=== PATIENT | male | born 1960 | race Caucasian/White ===

== ENCOUNTER 2020-08-24 23:26 | Emergency (ER) | payer OTHER ==
[~2020-08-24] VITALS: Ht 188 cm; Wt 235.9 kg
[~2020-08-24 23:26] MED LIST: ATEN25TA PO; LISI2.5T2 PO; WARF1TAB PO
--- NOTE | 2020-08-24 23:43 | NUR ---
PT AAOX4. BIBSELF C/O RUQ ABD PAIN X 2 HRS. PT PLACED IN BED 11 ON MONITOR AND PULSE OX. VSS. MD AT BEDSIDE FOR EVAL AWAITING ORDERS.
[2020-08-25] MEDS ORDERED: HYDROMORPHONE 1 MG/1 ML DISP.SYRIN ONE (00:19)
[2020-08-25] MEDS ORDERED: ONDANSETRON HCL/PF 4 MG/2 ML VIAL ONE (00:19)
[2020-08-25 00:26] LABS: BASOPHILS # (AUTO) 0.2 /CMM (0.0-0.2); BASOPHILS % (AUTO) 3.9 % (0.0-2.0); EOSINOPHILS % (AUTO) 0.4 % (0.0-6.0); HEMATOCRIT 37 % (39-51); HEMOGLOBIN 11.5 g/dL (13.5-17.5); LYMPHOCYTES # (AUTO) 0.6 /CMM (0.8-4.8); LYMPHOCYTES % (AUTO) 11.7 % (20.0-44.0); MEAN CORPUSCULAR HGB CONC 32 g/dl (31.0-36.0); MEAN CORPUSCULAR VOLUME 88 fL (80-96); MONOCYTES # (AUTO) 0.3 /CMM (0.1-1.30); MONOCYTES % (AUTO) 5.8 % (2.0-12.0); NEUTROPHILS # (AUTO) 4.3 /CMM (1.8-8.9); NEUTROPHILS % (AUTO) 78.2 % (43.0-81.0); PLATELET COUNT (AUTO) 135 /CMM (150-450); RED BLOOD CELL COUNT(AUTO) 4.14 MIL/uL (4.5-6.0); WHITE BLOOD COUNT (AUTO) 5.5 K/uL (4.3-11.0)
[2020-08-25] MEDS ORDERED: ONDANSETRON HCL/PF 4 MG/2 ML VIAL IVP ONE (00:30)
[2020-08-25] MEDS ORDERED: HYDROMORPHONE INJ 2 MG/ML DISP.SYRIN IV ONE (00:30)
[2020-08-25] MEDS ORDERED: IV NS 0.9% 500 ML BAG IV ONE (00:30)
[2020-08-25 00:43] LABS: ALANINE AMINOTRANSFERASE 25 U/L (12-78); ALKALINE PHOSPHATASE 88 U/L (46-116); ASPARTATE AMINOTRANSFERASE 20 U/L (15-37); BILIRUBIN,DIRECT 0.1 mg/dL (0.0-0.2); BILIRUBIN,TOTAL 0.3 mg/dL (0.2-1.0); CALCIUM, SERUM 8.7 mg/dL (8.5-10.1); CARBON DIOXIDE 25 mmol/L (21-32); CHLORIDE 106 mmol/L (98-107); CREATININE 1.1 mg/dL (0.6-1.3); GLUCOSE 109 mg/dL (74-106); LIPASE 179 U/L (73-393); POTASSIUM 3.9 mmol/L (3.5-5.1); SODIUM SERUM 142 mmol/L (136-145); TOTAL PROTEIN, SERUM 8.1 g/dL (6.4-8.2); UREA NITROGEN, BLOOD 12 mg/dL (7-18)
--- NOTE | 2020-08-25 00:49 | NUR ---
PT RESTING COMFORTABLY. VSS. DENIES PAIN.
--- NOTE | 2020-08-25 01:34 | NUR ---
PT ASLEEP, VSS.
--- NOTE | 2020-08-25 02:19 | NUR ---
PT RESTING IN BED, VSS.
--- NOTE | 2020-08-25 04:01 | NUR ---
JF CALLED NO BLS TRANSPORT AVAILABLE UNTIL AFTERNOON.
--- NOTE | 2020-08-25 04:06 | NUR ---
ANT CALLED NO BLS TRANSPORT AVAILABLE UNTIL AFTERNOON.
--- NOTE | 2020-08-25 04:13 | NUR ---
PT PROVIDED WITH BLANKET. DENIES PAIN.
--- NOTE | 2020-08-25 05:46 | NUR ---
PT IN BED COMFORTABLY. VSS.
--- NOTE | 2020-08-25 07:06 | NUR ---
SPOKE TO PT, STATED HE DOES NOT HAVE A WAY OF GETTING HOME. VSS. AWARE OF BEING DISCHARGED.
--- NOTE | 2020-08-25 08:24 | NUR ---
RAFAEL HOUGH CALLED FOR ASSISTANCE WITH TX/DC
--- NOTE | 2020-08-25 09:38 | NUR ---
IV removed. Catheter intact and site benign. Pressure and 4x4 applied to site. No bleeding noted.Patient discharged to home in stable condition. Written and verbal after care instructions given. Patient verbalizes understanding of instruction. Assisted to waiting room via wheelchair. Will set a cab for the patient.
--- NOTE | 2020-08-25 11:17 | NUR ---
8:45am Online Content Coordinator consult requested by ED paint tinter Gener to assist in discharge planning/transportation regarding this patient. Patient reported to this SW that in the past he has been set up with a taxi to be transported. Patient requested taxi transportation to this SW. SW will relay message to ED paint tinter Gener and MERRILL Macedo to set up a taxi for this patient. SW remains available for all needs regarding this patient.
--- NOTE | 2020-08-25 11:19 | NUR ---
8:50am SW and ED MERRILL Macedo met with the patient at bedside. ED MERRILL Macedo confirmed with the patient regarding transportation via taxi. Patient remained in agreement and ED MERRILL Macedo will set up taxi for a safe and proper discharge. EMI remains available for all needs regarding this patient.
[2020-08-25 11:44] VITALS: BP 109/69
== END 2020-08-25 09:38 | disposition home or self-care (01) ==
LOC: ER 23:30
DX: K80.20 Calculus of gallbladder without cholecystitis without obstruction (principal); Z20.828 Contact with and (suspected) exposure to other viral communicable diseases; Z86.73 Personal history of transient ischemic attack (TIA), and cerebral infarction without residual deficits; J44.9 Chronic obstructive pulmonary disease, unspecified; I25.2 Old myocardial infarction; I10 Essential (primary) hypertension; Z79.01 Long term (current) use of anticoagulants; Z79.899 Other long term (current) drug therapy; E11.9 Type 2 diabetes mellitus without complications
CPT/HCPCS: 36415; 71045; 80048; 80076; 83690; 84484; 85025; 87426; 93005; 96361; 96374; 96375; 99285; C9803; J1170; J2405; J7030

== ENCOUNTER 2021-02-07 03:10 | Inpatient (IN) | payer OTHER ==
[~2021-02-07] VITALS: Ht 200.7 cm; Wt 227.2 kg
[2021-02-07] MEDS ORDERED: ASPIRIN 81 MG TAB.CHEW ONE (03:26)
[2021-02-07] MEDS ORDERED: NITROGLYCERIN PACKET 1 GM PACKET ONE (03:26)
[2021-02-07] MEDS ORDERED: ASPIRIN 81 MG TAB.CHEW PO ONE (03:30)
[2021-02-07] MEDS ORDERED: NITROGLYCERIN PACKET 1 GM PACKET TD ONE (03:30)
--- NOTE | 2021-02-07 03:31 | NUR ---
PT AAOX4. BIBRA FROM C/O FEELING DIZZINESS, CP AND L ARM NUMBNESS. PLACED IN BED 9 ON POOL TABLE OPERATOR AND PULSE OX. VITALS STABLE. SAT 99%. PLACED ON 2L NC.
[2021-02-07 03:45] LABS: BASOPHILS % (AUTO) 0.4 % (0.0-2.0); EOSINOPHILS % (AUTO) 0.5 % (0.0-6.0); HEMATOCRIT 35 % (39-51); HEMOGLOBIN 10.9 g/dL (13.5-17.5); LYMPHOCYTES # (AUTO) 1.1 /CMM (0.8-4.8); LYMPHOCYTES % (AUTO) 9.1 % (20.0-44.0); MEAN CORPUSCULAR HGB CONC 31 g/dl (31.0-36.0); MEAN CORPUSCULAR VOLUME 87 fL (80-96); MONOCYTES # (AUTO) 1.2 /CMM (0.1-1.30); MONOCYTES % (AUTO) 10.1 % (2.0-12.0); NEUTROPHILS # (AUTO) 9.3 /CMM (1.8-8.9); NEUTROPHILS % (AUTO) 79.9 % (43.0-81.0); PLATELET COUNT (AUTO) 217 /CMM (150-450); RED BLOOD CELL COUNT(AUTO) 4.02 MIL/uL (4.5-6.0); WHITE BLOOD COUNT (AUTO) 11.7 K/uL (4.3-11.0)
--- NOTE | 2021-02-07 03:45 | NUR ---
RADIOLOGY AT BEDSIDE
[2021-02-07 03:59] LABS: CALCIUM, SERUM 8.6 mg/dL (8.5-10.1); CARBON DIOXIDE 24 mmol/L (21-32); CHLORIDE 106 mmol/L (98-107); CREATININE 1.1 mg/dL (0.6-1.3); GLUCOSE 101 mg/dL (74-106); POTASSIUM 3.6 mmol/L (3.5-5.1); SODIUM SERUM 140 mmol/L (136-145); UREA NITROGEN, BLOOD 13 mg/dL (7-18)
[2021-02-07 04:03] LABS: D-DIMER 0.19 mg/L(FEU (0.17-0.50)
[2021-02-07 04:13] LABS: ALANINE AMINOTRANSFERASE 14 U/L (12-78); ALKALINE PHOSPHATASE 90 U/L (46-116); ASPARTATE AMINOTRANSFERASE 11 U/L (15-37); BILIRUBIN,DIRECT 0.2 mg/dL (0.0-0.2); BILIRUBIN,TOTAL 0.8 mg/dL (0.2-1.0); NT-PRO BNP 32 pg/mL (0-125); TOTAL PROTEIN, SERUM 7.9 g/dL (6.4-8.2)
--- NOTE | 2021-02-07 04:17 | NUR ---
LENYID SWABBED, SENT TO LAB.
--- NOTE | 2021-02-07 04:40 | NUR ---
DR LOGAN ON THE PHONE WITH EBONI MENDEZ NP
--- NOTE | 2021-02-07 04:42 | NUR ---
ER SPEAKING TO EBONI GUALLPA. PT READY FOR ADMISSION
--- NOTE | 2021-02-07 04:43 | NUR ---
CALLED [facility] FOR TELE BED
[2021-02-07] MEDS ORDERED: Z GUARD REMEDY 2 OZ OINT TP PRN (05:00)
[2021-02-07] MEDS ORDERED: HYDROCODONE/APAP 5/325MG TABLET PO PRN (05:00)
[2021-02-07] MEDS ORDERED: TEMAZEPAM 15 MG CAPSULE PO PRN (05:00)
[2021-02-07] MEDS ORDERED: MORPHINE SULFATE INJ 2 MG/ML DISP.SYRIN IV PRN (05:00)
[2021-02-07] MEDS ORDERED: MAG HYDROX/AL HYDROX/SIMETH 30 ML UDC PO PRN (05:00)
[2021-02-07] MEDS ORDERED: MAGNESIUM HYDROXIDE 30 ML UDC PO PRN (05:00)
[2021-02-07] MEDS ORDERED: ONDANSETRON HCL/PF 4 MG/2 ML VIAL IVP PRN (05:00)
[2021-02-07] MEDS ORDERED: ACETAMINOPHEN 325 MG TABLET PO PRN (05:00)
--- NOTE | 2021-02-07 05:29 | NUR ---
TELE BED: 306-5
--- NOTE | 2021-02-07 06:22 | NUR ---
REPORT GIVEN TO ROSANGELA MOMIN FOR LORNA. PT TRANSFERED.
[2021-02-07] MEDS ORDERED: WARF-58 PO (07:57)
[2021-02-07] MEDS ORDERED: ATOR40TA PO (07:57)
[2021-02-07] MEDS ORDERED: FURO20TA4 PO (07:57)
[2021-02-07] MEDS ORDERED: WARF10TA45 PO (07:57)
[2021-02-07] MEDS ORDERED: LISI40TA13 PO (07:57)
[2021-02-07] MEDS ORDERED: ACET325T53 PO (07:57)
[2021-02-07] MEDS ORDERED: AMLO-213 PO (07:57)
--- NOTE | 2021-02-07 08:00 | NUR ---
RN OPENING NOTE PT CURRENTLY IN BED RESTING. A/O X3 AND [place] SPEAKING. NO COMPLAINT OF PAIN OR NAUSEA. CURRENTLY ON RA WITH NO SOB OR RESPIRATORY DISTRESS PRESENT. SELF AMBULATORY WITH BATHROOM PRIVILEGES. BED ALARM ON. NO EDEMA PRESENT. IV PRESENT ON R AC 20G AND FLUSHES WELL. SKIN PROBLEMS PRESENT ON B LE AND PICTURES PLACED CHART. SAFETY MEASURES IN PLACE. SIDE RAILS RAISED. BED LOWERED. CALL LIGHT WITHIN REACH. WILL CONTINUE TO MONITOR.
[2021-02-07] MEDS: PANTOPRAZOLE 40 MG TABLET.DR PO SCH (08:09)
[2021-02-07] MEDS: FUROSEMIDE 20 MG TABLET PO SCH (08:22)
[2021-02-07] MEDS: LISINOPRIL (20MG) 20 MG TABLET PO SCH (08:24)
[2021-02-07 08:47] VITALS: BP 124/68
[2021-02-07] MEDS ORDERED: AMLODIPINE BESYLATE 5 MG TABLET PO SCH (09:00)
[2021-02-07] MEDS ORDERED: WARFARIN SODIUM 5 MG TABLET PO SCH (09:00)
[2021-02-07] MEDS ORDERED: BUMETANIDE INJ 0.25 MG/ML VIAL IV ONE (10:00)
[2021-02-07] MEDS: CARVEDILOL 12.5 MG TABLET PO SCH ×2 (10:30→21:18)
[2021-02-07 10:58] LABS: IRON, SERUM 67 ug/dl (50-175); TOTAL IRON BINDING CAPACITY 242 ug/dl (250-450)
[2021-02-07 11:04] LABS: FERRITIN 163 ng/mL (8-388)
[2021-02-07 14:45] LABS: BILIRUBIN,URINE NEGATIVE (NEGATIVE); COLOR,URINE YELLOW (YELLOW); LEUKOCYTE ESTERASE ,URINE NEGATIVE (NEGATIVE); NITRITE, URINE NEGATIVE (NEGATIVE); PH,URINE 5.5 (5.0-8.0); PROTEIN,URINE NEGATIVE (NEGATIVE); UGLUCOSE NEGATIVE (NEGATIVE); UROBILINOGEN,URINE 0.2 EU/dL (0.2)
[2021-02-07 16:13] VITALS: BP_SYST 115; BP_SYST 98; BP_DIAS 47; BP_DIAS 70
[2021-02-07] MEDS: WARFARIN SODIUM 5 MG TABLET PO SCH (16:41)
[2021-02-07] MEDS ORDERED: ATORVASTATIN 40 MG TABLET PO SCH ×2 (18:00→22:00)
--- NOTE | 2021-02-07 18:11 | NUR ---
RN CLOSING NOTE PT CURRENTLY IN BED RESTING. A/O X3 AND CITIZEN OF [place] SPEAKING. NO COMPLAINT OF PAIN OR NAUSEA. CURRENTLY ON RA WITH NO SOB OR RESPIRATORY DISTRESS PRESENT. SELF AMBULATORY WITH BATHROOM PRIVILEGES. NO EDEMA PRESENT. IV PRESENT ON R AC 20G AND FLUSHES WELL. SKIN PROBLEMS PRESENT ON B LE AND PICTURES PLACED CHART. WOUND CARE CONSULT ORDERED AND PODIATRY CONSULT REQUESTED. SAFETY MEASURES IN PLACE. SIDE RAILS RAISED. BED LOWERED. CALL LIGHT WITHIN REACH. REPORT TO BE GIVEN TO NIGHT NURSE FOR LORNA.
[2021-02-07 19:57] VITALS: BP 140/60
[2021-02-07 20:00] VITALS: BP 140/60
--- NOTE | 2021-02-07 20:19 | NUR ---
RECEIVED PATIENT IN BED ALERT AND ORIENTATED X4 IN [employer], ENJOYS TALKING ABOUT HIS FAMILY ANF HEALTH DENIES PAIN BED ALARM ON
[2021-02-08] VITALS: BP 103/52
--- NOTE | 2021-02-08 00:01 | NUR ---
Pt placed on cpap per md orders. Pt setting as noted and adjusted per pt comfort. Pt tolerating setting well. No sob or distress noted. Alarms set and audible. Cpap to red outlet. Continue with current care plan and monitor for any changes. Addendum: 02/08/21 at 0003 by DORI MARISCAL RT Amended: Links added.
[2021-02-08 00:34] VITALS: BP 103/52
[2021-02-08 04:00] VITALS: BP 104/59
--- NOTE | 2021-02-08 04:01 | NUR ---
ending notes ; slept 10 hours this night no noted SOB USED THE URINAL THRU THE NIGHT IKER LEGS WITH BUMPY THICK SKIN IN [employer] SPEAKS OF GOING HOME IN THE AL SINUS RHYTHM THRU THE NIGHT NO CHEST PAIN THIS 12 HOURS
[2021-02-08 06:00] LABS: BASOPHILS % (AUTO) 0.3 % (0.0-2.0); EOSINOPHILS % (AUTO) 1.2 % (0.0-6.0); HEMATOCRIT 32 % (39-51); HEMOGLOBIN 10.3 g/dL (13.5-17.5); LYMPHOCYTES # (AUTO) 1.1 /CMM (0.8-4.8); LYMPHOCYTES % (AUTO) 14.3 % (20.0-44.0); MEAN CORPUSCULAR HGB CONC 33 g/dl (31.0-36.0); MEAN CORPUSCULAR VOLUME 86 fL (80-96); MONOCYTES # (AUTO) 0.9 /CMM (0.1-1.30); MONOCYTES % (AUTO) 11.7 % (2.0-12.0); NEUTROPHILS # (AUTO) 5.5 /CMM (1.8-8.9); NEUTROPHILS % (AUTO) 72.5 % (43.0-81.0); PLATELET COUNT (AUTO) 203 /CMM (150-450); RED BLOOD CELL COUNT(AUTO) 3.69 MIL/uL (4.5-6.0); WHITE BLOOD COUNT (AUTO) 7.7 K/uL (4.3-11.0)
[2021-02-08 06:06] LABS: CALCIUM, SERUM 8.4 mg/dL (8.5-10.1); CREATININE 0.9 mg/dL (0.6-1.3); MAGNESIUM 1.9 mg/dL (1.8-2.4); PHOSPHORUS 3.8 mg/dL (2.5-4.9); POTASSIUM 3.7 mmol/L (3.5-5.1)
[2021-02-08 08:00] VITALS: BP 113/54
--- NOTE | 2021-02-08 08:00 | NUR ---
RN OPENING NOTE RECEIVED PATIENT IN BED, SLEEPING, AO X 4, ABLE TO RESPONDS ALL STIMULI. DOES NO APPEARS PAIN OR DISTRESS AT THIS TIME. SKIN IS WARM TO TOUCH, KEEP CLEAN/DRY INTACT IV SITE. RESPIRATORY EVEN AND UNLABORED WITH OXYGEN AT 2LPM. PROCUREMENT REPRESENTATIVE SHOWS SR 80s WITH BBB THIS MORNING. KEPT ELEVATED HOB FOR ENSURE AIR AND ASPIRATION PRECAUTION, ALSO LOWEST BED POSITION FOR SAFETY. CALL LIGHT WITHIN REACH, WILL CONTINUE TO MONITOR.
[2021-02-08] MEDS: PANTOPRAZOLE 40 MG TABLET.DR PO SCH (08:11)
[2021-02-08] MEDS: FUROSEMIDE 20 MG TABLET PO SCH (08:11)
[2021-02-08] MEDS: LISINOPRIL (20MG) 20 MG TABLET PO SCH (08:58)
[2021-02-08] MEDS: CARVEDILOL 12.5 MG TABLET PO SCH (08:58)
--- NOTE | 2021-02-08 08:58 | NUR ---
BP-96/54, P-83 WILL HOLD BP MEDS THIS MORNING.
[2021-02-08] MEDS ORDERED: FUROSEMIDE 20 MG TABLET PO SCH (09:00)
[2021-02-08] MEDS ORDERED: LISINOPRIL (20MG) 20 MG TABLET PO SCH (09:00)
[2021-02-08] MEDS ORDERED: AMLODIPINE BESYLATE 10 MG TABLET PO SCH ×2 (09:00)
--- NOTE | 2021-02-08 11:04 | NUR ---
WOUND CARE CONSULT: PT FOLLOWED BY DPM (DR JIMÉNEZ). PT IS INDEPENDENT WITH MOBILITY AND CONTINENT. WILL SEE PRN.
[2021-02-08 16:00] VITALS: BP 126/60
[2021-02-08] MEDS ORDERED: AMMONIUM LACTATE 227 GM BOTTLE TP SCH (17:00)
--- NOTE | 2021-02-08 17:00 | NUR ---
PT/INR IS HIGH (25.5/2.63) TODAY, CLARIFIED WITH WHO SAID OK TO GIVE COUMADIN.
[2021-02-08] MEDS: WARFARIN SODIUM 5 MG TABLET PO SCH (17:09)
--- NOTE | 2021-02-08 18:35 | NUR ---
RN CLOSING NOTE PATIENT DISCHARGE TO HOME, REMAINS AO X 3-4, DENIES DISTRESS OR DISCOMFORT. SKIN IS WARM TOUCH, KEEP CLEAN/DRY. RESPIRATORY EVEN AND UNLABORED IN ROOM AIR. GIVEN DISCHARGE INSTRUCTION INCLUDE FOLLOW UP MDS', CONTINUE TO HOME MEDICATIONS AND PATIENT VERBALLY UNDERSTANDING. IN STABLE CONDITION.
[2021-02-09 05:08] LABS: *SPE A/G RATIO 0.7 (0.7-1.7); *SPE ALBUMIN 2.9 g/dL (2.9-4.4); *SPE ALPHA-1-GLOBULIN 0.3 g/dL (0.0-0.4); *SPE ALPHA-2-GLOBULIN 0.7 g/dL (0.4-1.0); *SPE BETA GLOBULIN 1.1 g/dL (0.7-1.3); *SPE GLOBULIN, TOTAL 4.3 g/dL (2.2-3.9); *SPE M-SPIKE 1.6 g/dL (Not Observed); *SPEGAMMA GLOBULIN 2.2 g/dL (0.4-1.8)
[2021-02-09] MEDS ORDERED: ANESTHESIA TRAY IN PYXIS 1 EA TRAY MC ONE (08:13)
[2021-02-09] MEDS ORDERED: BUPIVACAINE 0.25% 75 MG/30 ML VIAL ONE (08:14)
[2021-02-11] MEDS ORDERED: WARFARIN SODIUM 5 MG TABLET PO SCH ×2 (12:30→17:00)
== END 2021-02-08 19:25 | disposition home or self-care (01) | DRG 48 ==
LOC: ER 03:12 → TELE 05:29 → MED 02-08 10:03
PROVIDERS: ADMIT Nurse Practitioner Acute Care; ATTEND Nurse Practitioner Family
DX: G90.8 Other disorders of autonomic nervous system (principal); I27.20 Pulmonary hypertension, unspecified; E66.2 Morbid (severe) obesity with alveolar hypoventilation; E11.40 Type 2 diabetes mellitus with diabetic neuropathy, unspecified; E87.70 Fluid overload, unspecified; Z68.43 Body mass index [BMI] 50.0-59.9, adult; I25.2 Old myocardial infarction; E78.5 Hyperlipidemia, unspecified; I10 Essential (primary) hypertension; L85.3 Xerosis cutis; Z79.01 Long term (current) use of anticoagulants; Z86.718 Personal history of other venous thrombosis and embolism; Z86.73 Personal history of transient ischemic attack (TIA), and cerebral infarction without residual deficits; Z20.822 Contact with and (suspected) exposure to COVID-19; D72.829 Elevated white blood cell count, unspecified; I89.0 Lymphedema, not elsewhere classified; D63.8 Anemia in other chronic diseases classified elsewhere; E66.9 Obesity, unspecified; D36.7 Benign neoplasm of other specified sites; Z91.19 Patient's noncompliance with other medical treatment and regimen
CPT/HCPCS: 36415; 71045-TC; 80048-TC; 80061-TC; 80076-TC; 82728-TC; 83540-TC; 83735-TC; 83880; 84100-TC; 84155; 84165; 84484-TC; 85025-TC; 85378-TC; 85610-TC; 85730-TC; 87081-TC; 93307-TC; C9803; G0378; J3490

== ENCOUNTER 2023-05-02 12:48 | Inpatient (IN) | payer OTHER ==
[~2023-05-02] VITALS: Ht 185.4 cm; Wt 190.5 kg
[~2023-05-02 12:48] MED LIST changes: +ACET325T53 PO; +AMLO-213 PO; -ATEN25TA PO; +ATOR40TA PO; +FURO20TA4 PO; -LISI2.5T2 PO; +LISI40TA13 PO; +WARF-58 PO; +WARF10TA45 PO; -WARF1TAB PO
[2023-05-02] MEDS ORDERED: IV NS 0.9% 500 ML BAG IV ONE (13:30)
[2023-05-02 13:48] LABS: BASOPHILS % (AUTO) 0.5 % (0.0-2.0); EOSINOPHILS # (AUTO) 0.1 K/uL (0.0-0.7); EOSINOPHILS % (AUTO) 0.7 % (0.0-6.0); HEMATOCRIT 44 % (39-51); HEMOGLOBIN 14.5 g/dL (13.5-17.5); LYMPHOCYTES # (AUTO) 1.7 K/uL (0.8-4.8); LYMPHOCYTES % (AUTO) 20.7 % (20.0-44.0); MEAN CORPUSCULAR HEMOGLOBIN 30 PG (26.0-33.0); MEAN CORPUSCULAR HGB CONC 33 g/dl (31.0-36.0); MEAN CORPUSCULAR VOLUME 91 fL (80-96); MONOCYTES # (AUTO) 0.6 K/uL (0.1-1.30); MONOCYTES % (AUTO) 7.6 % (2.0-12.0); NEUTROPHILS # (AUTO) 5.9 K/uL (1.8-8.9); NEUTROPHILS % (AUTO) 70.5 % (43.0-81.0); PLATELET COUNT (AUTO) 199 K/uL (150-450); RED BLOOD CELL COUNT(AUTO) 4.81 MIL/uL (4.5-6.0); RED CELL DISTRIBUTION WIDTH 14.3 % (11.5-15.0); WHITE BLOOD COUNT (AUTO) 8.4 K/uL (4.3-11.0)
[2023-05-02] MEDS ORDERED: ONDANSETRON HCL/PF 4 MG/2 ML VIAL ONE (13:54)
[2023-05-02] MEDS ORDERED: MORPHINE SULFATE INJ 4 MG/ML DISP.SYRIN ONE (13:55)
[2023-05-02] MEDS ORDERED: AMMO225L14 TP (13:57)
[2023-05-02] MEDS ORDERED: SENN-261 PO (13:57)
[2023-05-02] MEDS ORDERED: CALC1TAB30 PO (13:57)
[2023-05-02] MEDS ORDERED: IPRA3AMP22 IH (13:57)
[2023-05-02] MEDS ORDERED: MAGN400O6 PO (13:57)
[2023-05-02] MEDS ORDERED: ACET-868 PO (13:57)
[2023-05-02] MEDS ORDERED: RIVA10TA PO (13:57)
[2023-05-02] MEDS ORDERED: HYDR-4303 PO (13:57)
[2023-05-02] MEDS ORDERED: ATOR80TA PO (13:57)
[2023-05-02] MEDS ORDERED: DOCU100T2 PO (13:57)
[2023-05-02 13:58] LABS: CALCIUM, SERUM 9.3 mg/dL (8.5-10.1); CARBON DIOXIDE 22 mmol/L (21-32); CHLORIDE 107 mmol/L (98-107); CREATININE 0.8 mg/dL (0.6-1.3); GLUCOSE 141 mg/dL (74-106); POTASSIUM 3.5 mmol/L (3.5-5.1); SODIUM SERUM 140 mmol/L (136-145); UREA NITROGEN, BLOOD 15 mg/dL (7-18)
[2023-05-02] MEDS ORDERED: MORPHINE SULFATE INJ 2 MG/ML DISP.SYRIN IV ONE (14:00)
[2023-05-02] MEDS ORDERED: ONDANSETRON HCL/PF - ER 4 MG/2 ML VIAL IV ONE (14:00)
[2023-05-02 14:12] LABS: ALANINE AMINOTRANSFERASE 16 U/L (12-78); ALBUMIN 3.1 g/dL (3.4-5.0); ALKALINE PHOSPHATASE 93 U/L (46-116); ASPARTATE AMINOTRANSFERASE 12 U/L (15-37); BILIRUBIN,DIRECT 0.2 mg/dL (0.0-0.2); BILIRUBIN,TOTAL 0.8 mg/dL (0.2-1.0); NT-PRO BNP 33 pg/mL (0-125); TOTAL PROTEIN, SERUM 7.5 g/dL (6.4-8.2)
[2023-05-02 16:00] VITALS: BP 109/58; TEMP 97.6; O2SAT 100
[2023-05-02] MEDS ORDERED: IV 1/2NS 1000 ML 1,000 ML IV PRN (16:00)
[2023-05-02] MEDS ORDERED: Z GUARD REMEDY 4 OZ OINT TP PRN (16:00)
[2023-05-02] MEDS ORDERED: ONDANSETRON HCL/PF 4 MG/2 ML VIAL IVP PRN (16:00)
[2023-05-02] MEDS ORDERED: MAGNESIUM HYDROXIDE 30 ML UDC PO PRN (16:00)
[2023-05-02] MEDS ORDERED: ACETAMINOPHEN 325 MG TABLET PO PRN (16:00)
[2023-05-02] MEDS: RIVAROXABAN 10 MG TABLET PO SCH (18:35)
[2023-05-02] MEDS ORDERED: ALBUTEROL FS 2.5 MG/0.5 ML VIAL.NEB NEB PRN (19:00)
[2023-05-02] MEDS ORDERED: IPRATROPIUM NEB FS 0.5 MG/2.5 ML AMPUL.NEB NEB PRN (19:00)
[2023-05-02 20:00] VITALS: BP 126/67; TEMP 98.2; O2SAT 97
[2023-05-02] MEDS: ATORVASTATIN 40 MG TABLET PO SCH (21:09)
[2023-05-02] MEDS: SENNOSIDES 8.6 MG TABLET PO SCH (21:09)
[2023-05-02] MEDS: HYDROCODONE/APAP 5/325MG TABLET PO PRN (21:18)
[2023-05-03 04:00] VITALS: BP 101/67; TEMP 98.5; O2SAT 97
[2023-05-03 06:24] LABS: BASOPHILS % (AUTO) 0.4 % (0.0-2.0); EOSINOPHILS # (AUTO) 0.1 K/uL (0.0-0.7); EOSINOPHILS % (AUTO) 1.6 % (0.0-6.0); HEMATOCRIT 40 % (39-51); HEMOGLOBIN 13.2 g/dL (13.5-17.5); LYMPHOCYTES # (AUTO) 1.7 K/uL (0.8-4.8); LYMPHOCYTES % (AUTO) 23.5 % (20.0-44.0); MEAN CORPUSCULAR HEMOGLOBIN 31 PG (26.0-33.0); MEAN CORPUSCULAR HGB CONC 33 g/dl (31.0-36.0); MEAN CORPUSCULAR VOLUME 92 fL (80-96); MONOCYTES # (AUTO) 0.7 K/uL (0.1-1.30); NEUTROPHILS # (AUTO) 4.5 K/uL (1.8-8.9); NEUTROPHILS % (AUTO) 64.5 % (43.0-81.0); PLATELET COUNT (AUTO) 183 K/uL (150-450); RED BLOOD CELL COUNT(AUTO) 4.31 MIL/uL (4.5-6.0); RED CELL DISTRIBUTION WIDTH 14.2 % (11.5-15.0)
[2023-05-03 08:08] LABS: CALCIUM, SERUM 8.8 mg/dL (8.5-10.1); CREATININE 0.8 mg/dL (0.6-1.3); MAGNESIUM 1.7 mg/dL (1.8-2.4); PHOSPHORUS 3.6 mg/dL (2.5-4.9); POTASSIUM 3.8 mmol/L (3.5-5.1)
[2023-05-03] MEDS: CALCIUM CARB 600MG /VIT D 1 EACH TABLET PO SCH (08:32)
[2023-05-03] MEDS: DOCUSATE SODIUM 100 MG CAPSULE PO SCH ×2 (08:32→16:08)
[2023-05-03] MEDS: AMMONIUM LACTATE TP SCH ×2 (08:32→16:08)
[2023-05-03] MEDS: PANTOPRAZOLE 40 MG TABLET.DR PO SCH (08:32)
[2023-05-03 09:27] VITALS: BP 120/77; TEMP 98; O2SAT 99
[2023-05-03] MEDS ORDERED: MAGNESIUM OXIDE 400 MG TABLET PO ONE (14:00)
[2023-05-03] MEDS: HYDROCODONE/APAP 5/325MG TABLET PO PRN (14:12)
[2023-05-03 16:03] VITALS: BP 110/60; TEMP 97.8; O2SAT 99
[2023-05-03] MEDS: RIVAROXABAN 10 MG TABLET PO SCH (17:27)
[2023-05-03] MEDS: SENNOSIDES 8.6 MG TABLET PO SCH (21:12)
[2023-05-03] MEDS: ATORVASTATIN 40 MG TABLET PO SCH (21:12)
[2023-05-04 01:05] VITALS: BP 110/60; TEMP 97.8; O2SAT 99
[2023-05-04] MEDS: PANTOPRAZOLE 40 MG TABLET.DR PO SCH (07:42)
[2023-05-04 08:00] VITALS: BP 101/50; TEMP 98.3; O2SAT 99
[2023-05-04] MEDS: DOCUSATE SODIUM 100 MG CAPSULE PO SCH ×2 (09:18→17:34)
[2023-05-04] MEDS: CALCIUM CARB 600MG /VIT D 1 EACH TABLET PO SCH (09:19)
[2023-05-04] MEDS: AMMONIUM LACTATE TP SCH ×2 (09:19→17:35)
[2023-05-04 16:00] VITALS: BP 101/50; TEMP 98.3; O2SAT 99
[2023-05-04] MEDS: RIVAROXABAN 10 MG TABLET PO SCH (17:47)
[2023-05-04] MEDS: HYDROCODONE/APAP 5/325MG TABLET PO PRN (19:31)
[2023-05-04 20:00] VITALS: BP 119/55; TEMP 98.5; O2SAT 99
[2023-05-04] MEDS: ATORVASTATIN 40 MG TABLET PO SCH (21:46)
[2023-05-04] MEDS: SENNOSIDES 8.6 MG TABLET PO SCH (21:47)
[2023-05-05] MEDS: PANTOPRAZOLE 40 MG TABLET.DR PO SCH (07:30)
[2023-05-05] MEDS: CALCIUM CARB 600MG /VIT D 1 EACH TABLET PO SCH (08:35)
[2023-05-05] MEDS: DOCUSATE SODIUM 100 MG CAPSULE PO SCH ×2 (08:35→17:00)
[2023-05-05] MEDS: AMMONIUM LACTATE TP SCH ×2 (08:37→17:00)
[2023-05-05] MEDS: MUPIROCIN OINT 2% 22 GM TUBE NS SCH ×2 (09:00→20:49)
[2023-05-05] MEDS: RIVAROXABAN 10 MG TABLET PO SCH (18:13)
[2023-05-05 21:00] VITALS: BP 104/47; TEMP 98.6; O2SAT 98
[2023-05-05] MEDS: ATORVASTATIN 40 MG TABLET PO SCH (21:13)
[2023-05-05] MEDS: SENNOSIDES 8.6 MG TABLET PO SCH (21:13)
[2023-05-06 05:00] VITALS: BP 152/98; TEMP 98.5; O2SAT 97
[2023-05-06] MEDS: PANTOPRAZOLE 40 MG TABLET.DR PO SCH (07:59)
[2023-05-06 08:00] VITALS: BP 127/89; TEMP 98.4; O2SAT 95
[2023-05-06] MEDS: DOCUSATE SODIUM 100 MG CAPSULE PO SCH ×2 (08:01→17:00)
[2023-05-06] MEDS: CALCIUM CARB 600MG /VIT D 1 EACH TABLET PO SCH (08:01)
[2023-05-06] MEDS: AMMONIUM LACTATE TP SCH ×2 (08:04→17:14)
[2023-05-06] MEDS: MUPIROCIN OINT 2% 22 GM TUBE NS SCH ×2 (08:04→21:20)
[2023-05-06 16:12] VITALS: BP 130/85; TEMP 98.6; O2SAT 97
[2023-05-06] MEDS: RIVAROXABAN 10 MG TABLET PO SCH (17:12)
[2023-05-06 21:00] VITALS: BP 112/67; TEMP 97.3; O2SAT 97
[2023-05-06] MEDS: SENNOSIDES 8.6 MG TABLET PO SCH (21:08)
[2023-05-06] MEDS: ATORVASTATIN 40 MG TABLET PO SCH (21:08)
[2023-05-07 05:06] VITALS: BP 121/75; TEMP 98.6; O2SAT 97
[2023-05-07] MEDS: DOCUSATE SODIUM 100 MG CAPSULE PO SCH ×2 (08:02→17:05)
[2023-05-07] MEDS: PANTOPRAZOLE 40 MG TABLET.DR PO SCH (08:02)
[2023-05-07] MEDS: MUPIROCIN OINT 2% 22 GM TUBE NS SCH ×2 (08:02→21:08)
[2023-05-07] MEDS: CALCIUM CARB 600MG /VIT D 1 EACH TABLET PO SCH (08:02)
[2023-05-07] MEDS: AMMONIUM LACTATE TP SCH ×2 (08:02→17:05)
[2023-05-07 13:00] VITALS: BP 103/58; TEMP 98.5; O2SAT 99
[2023-05-07] MEDS: RIVAROXABAN 10 MG TABLET PO SCH (17:05)
[2023-05-07 21:00] VITALS: BP 156/90; TEMP 98.3; O2SAT 92
[2023-05-07] MEDS: ATORVASTATIN 40 MG TABLET PO SCH (21:07)
[2023-05-08 05:00] VITALS: BP 93/64; TEMP 98.2; O2SAT 98
[2023-05-08 08:00] VITALS: BP 110/67; TEMP 97.9; O2SAT 97
[2023-05-08] MEDS: MUPIROCIN OINT 2% 22 GM TUBE NS SCH ×2 (08:26→21:18)
[2023-05-08] MEDS: PANTOPRAZOLE 40 MG TABLET.DR PO SCH (08:30)
[2023-05-08] MEDS: DOCUSATE SODIUM 100 MG CAPSULE PO SCH ×2 (08:30→17:15)
[2023-05-08] MEDS: AMMONIUM LACTATE TP SCH ×2 (08:30→17:16)
[2023-05-08] MEDS: CALCIUM CARB 600MG /VIT D 1 EACH TABLET PO SCH (08:30)
[2023-05-08] MEDS: HYDROCODONE/APAP 5/325MG TABLET PO PRN (10:20)
[2023-05-08 16:00] VITALS: BP 117/55; TEMP 97.5; O2SAT 97
[2023-05-08] MEDS: RIVAROXABAN 10 MG TABLET PO SCH (17:16)
[2023-05-08] MEDS: ATORVASTATIN 40 MG TABLET PO SCH (21:19)
[2023-05-09] VITALS: BP 115/65; TEMP 98; O2SAT 97
[2023-05-09 08:00] VITALS: BP 100/68; TEMP 98; O2SAT 98
[2023-05-09] MEDS: MUPIROCIN OINT 2% 22 GM TUBE NS SCH (09:05)
[2023-05-09] MEDS: AMMONIUM LACTATE TP SCH ×2 (09:05→17:03)
[2023-05-09] MEDS: PANTOPRAZOLE 40 MG TABLET.DR PO SCH (09:05)
[2023-05-09] MEDS: DOCUSATE SODIUM 100 MG CAPSULE PO SCH ×3 (09:05→17:03)
[2023-05-09] MEDS: CALCIUM CARB 600MG /VIT D 1 EACH TABLET PO SCH (09:05)
[2023-05-09 16:00] VITALS: BP 104/62; TEMP 98.5; O2SAT 99
[2023-05-09] MEDS: RIVAROXABAN 10 MG TABLET PO SCH (17:03)
== END 2023-05-09 18:40 | DRG 422 ==
LOC: ER 12:52 → TELE1 15:05 → MEDSG1 15:57
PROVIDERS: ADMIT Nurse Practitioner Family; ATTEND Nurse Practitioner Family
DX: E86.0 Dehydration (principal); I11.0 Hypertensive heart disease with heart failure; E44.0 Moderate protein-calorie malnutrition; R62.7 Adult failure to thrive; I50.9 Heart failure, unspecified; E88.09 Other disorders of plasma-protein metabolism, not elsewhere classified; Z68.43 Body mass index [BMI] 50.0-59.9, adult; E11.9 Type 2 diabetes mellitus without complications; G47.30 Sleep apnea, unspecified; Z86.718 Personal history of other venous thrombosis and embolism; Z86.73 Personal history of transient ischemic attack (TIA), and cerebral infarction without residual deficits; Z22.322 Carrier or suspected carrier of Methicillin resistant Staphylococcus aureus; Z71.3 Dietary counseling and surveillance; E66.01 Morbid (severe) obesity due to excess calories; Z79.01 Long term (current) use of anticoagulants
CPT/HCPCS: 36415; 71045-TC; 80048-TC; 80061-TC; 80076-TC; 83735-TC; 83880; 84100-TC; 84484-TC; 85025-TC; 85378-TC; 87081-TC; 93970-TC; 97110-TC; 97112-TC; 97530-TC; A4223; G0378; J2270; J2405; J3490; J7040